=== PATIENT | male | born 1985 | race Caucasian/White ===

== ENCOUNTER 2020-07-29 19:56 | Emergency (ER) | payer OTHER, BC, SELFPAY ==
[2020-07-29 19:57] VITALS: BP 145/85; PULSE 71; RESP 16; TEMP 36.9; O2SAT 97; BMI 35.5
--- NOTE | 2020-07-29 20:31 | EX.ED.UPPERE ---
HPI History of Present Illness Chief Complaint: Upper Extremity Injury Narrative Narrative: Patient presenting for evaluation secondary to a right shoulder injury. Patient states that he was at work, he was going down some stairs that were oily and he suffered a slip and fall injury. He was holding onto the railing, and states that his right arm was forcibly AB ducted and hyperextended behind him. He reports that he felt a pop in his shoulder, and now has pain over the posterior portion of his shoulder joint. Pain is moderate worse with movement. Patient denies any numbness or weakness. He denies any other injuries at this time. Is not any sort of anticoagulants. Review of systems otherwise negative. PFSH PFSH Home Medications NK 07/29/20 [History Last Taken Unknown] Allergy/AdvReac Type Severity Reaction Status Date / Time No Known Allergies Allergy Verified 07/29/20 19:59 Social History Smoking Status: Never smoker ROS ROS ED Constitutional Constitutional ED: Denies frequent falls Eyes Eyes: Denies change in vision Cardiovascular Cardiovascular: Denies chest pain Respiratory/Chest Respiratory/Chest: Denies cough or dyspnea Gastrointestinal Gastrointestinal: Denies nausea or vomiting Musculoskeletal Musculoskeletal: Reports other Details: Shoulder pain Integumentary Denies rash Hematologic/Lymphatic Hematologic/Lymphatic: Denies easy bleeding or easy bruising EXAM Physical Exam Const Vital Signs: 07/29/20 19:57 Temperature 98.4 F Temperature Source Temporal Pulse Rate 71 Respiratory Rate 16 Blood Pressure 145/85 H Blood Pressure Mean 105 Pulse Ox 97 Oxygen Delivery Method Room Air Positive well nourished and well developed General Appearance ED: well developed HEENT normocephalic and atraumatic Eyes PERRL and EOMs intact bilaterally Neck full ROM General: Negative for tenderness Resp normal respiratory effort and clear to auscultation bilaterally Cardio regular rate, regular rhythm and no murmurs GI non-tender Palpation: soft Extremity Extremity Narrative: Examination of the right shoulder shows no evidence of deformity on physical exam, no evidence of pain or limitation of range of motion of the distal arm including the elbow wrist and hand. Patient has pain specifically with internal rotation of the shoulder, and some pain over the posterior joint line. Patient does seem to have strength but has a significant amount of pain with rotator cuff exam Neuro oriented x3, moves all extremities, no focal motor deficits and no sensory deficits noted Sensorium / Orientation: alert Skin Rashes: no rashes MDM MDM MDM Narrative Medical decision making narrative: Patient presented secondary to a shoulder injury. Radiographs by my personal review showed no evidence of acute pathology on multiple views of the right shoulder. Patient has pain specifically over the supra and infraspinatus of the shoulder and pain with examination of those areas. He does not seem to have what would be a tear, but does have significant pain there. Patient will be given a referral to orthopedics as well as the occupational health clinic. He was given return to work instructions. Radiography X-Ray: Read by ED Physician and Normal Discharge Plan Triage Chief Complaint: Upper Extremity Injury ED Provider: Patric Vogel Dx/Rx/DC Orders Clinical Impression: Strain of right supraspinatus muscle Instructions: ED Shoulder Sprain Prescriptions: No Action NK RF: 0 Primary Care Provider: Care Physician,No Primary Referrals: [facility] [GROUP OF PHYSICIANS] - 1-2 Days if not improving Patric Manning DO [STAFF PHYSICIAN] - 1-2 Days if not improving Care Physician,No Primary [Primary Care Provider] - Disposition Disposition: Home, self care
--- NOTE | 2020-07-29 20:45 | RAD_ITS ---
STUDY: X-RAY - RIGHT SHOULDER REASON FOR EXAM: Male, 35 years old. Fall down stairs at work. Hit right shoulder on railing. Pain with movement. TECHNIQUE: 4 view(s) of the shoulder. COMPARISON: None. FINDINGS: Normal glenohumeral articulation. Normal acromioclavicular joint. Normal acromion. There is no acute fracture, dislocation or destructive osseous pathology. Normal humeral head and visualized proximal humerus. The soft tissue structures are unremarkable. Normal visualized pulmonary apex. RAD/Shoulder min 2 Views IMPRESSION: No acute fracture or dislocation. Electronically Signed: Gian Real DO at 21:10 EDT Tel [phone], Service support ,
[2020-07-29 21:53] VITALS: BP 128/78; PULSE 76; RESP 16; O2SAT 97
== END 2020-07-29 21:56 | disposition home or self-care (01) ==
PROVIDERS: Emergency Provider Emergency Medicine
DX: S46.011A Strain of muscle(s) and tendon(s) of the rotator cuff of right shoulder, initial encounter (principal); W10.9XXA Fall (on) (from) unspecified stairs and steps, initial encounter; Y93.9 Activity, unspecified; Y92.9 Unspecified place or not applicable
CPT/HCPCS: 73030; 99282